=== PATIENT | female | born 1970 | race African-American/Black ===

== ENCOUNTER → 2018-04-18 | Outpatient (CLI) | payer OTHER ==
[2016-02-24 11:50] VITALS: BP 109/91
[~2018-04-18] MED LIST: ARIP5TAB13 PO; BUPR150T8 PO; CYCL7.5T PO; DOCU-109 PO; GABA-585 PO; HYDR-2762 PO; IBUP-1060 PO; LISI1TAB3 PO; MODA100T2 PO; MULT-245 PO; VENL150C PO
== END | disposition home or self-care (01) ==
LOC: RT 08:31
PROVIDERS: ATTEND Physician Assistant Surgical
DX: R06.83 Snoring (principal); I10 Essential (primary) hypertension
CPT/HCPCS: G0399